=== PATIENT | female | born 1975 | race Caucasian/White ===

== ENCOUNTER 2016-07-18 15:02 | Emergency (ER) | payer OTHER ==
[2016-07-18 15:52] VITALS: BP 148/86
--- NOTE | 2016-07-18 16:48 | UC ---
Back Pain HPI - HPI Summary HPI Summary: 40 yo female with back pain x 10 days hurts to move/twist today has felt a little dizzy and weak no cp/abd pain or sob no uti symtpoms also complains of being gassy - History of Current Complaint Chief Complaint: UCBackPain Stated Complaint: BACK PAIN AND DIZZY Time Seen by Provider: 07/18/16 16:28 Hx Obtained From: Patient Hx Last Menstrual Period: NOW Onset/Duration: Gradual Onset, Lasting Days - 10 Severity Initially: Mild Severity Currently: Moderate Pain Intensity: 5 Pain Scale Used: 0-10 Numeric Character: Dull, Aching Aggravating: Movement, Lifting, Bending Alleviating: Rest Associated Signs And Symptoms: Positive: Weakness - today - Allergies/Home Medications Allergies/Adverse Reactions: Allergies Allergy/AdvReac Type Severity Reaction Status Date / Time No Known Allergies Allergy Verified 07/18/16 15:52 Home Medications: Home Medications Herbal Tea* PRN 07/18/16 [History] Lactobacillus [Probiotic] 07/18/16 [History] PMH/Surg Hx/FS Hx/Imm Hx Previously Healthy: Yes Endocrine History Of: Denies: Diabetes, Thyroid Disease Cardiovascular History Of: Denies: Cardiac Disorders, Hypertension Respiratory History Of: Denies: COPD, Asthma GI/ History Of: Denies: Ulcer Cancer History Of: Denies: Breast Cancer - Surgical History Surgical History: Yes Surgery Procedure, Year, and Place: , URETHRAL STRETCH 06/2016 - Family History Known Family History: Positive: Hypertension - Social History Alcohol Use: Occasionally Substance Use Type: None Smoking Status (MU): Never Smoked Tobacco Have You Smoked in the Last Year: No Review of Systems Constitutional: Fatigue Skin: Negative Eyes: Negative ENT: Negative Respiratory: Negative Cardiovascular: Negative Gastrointestinal: Negative Genitourinary: Negative Motor: Negative Neurovascular: Negative Musculoskeletal: Myalgia Neurological: Negative Psychological: Negative All Other Systems Reviewed And Are Negative: Yes Physical Exam Triage Information Reviewed: Yes Appearance: Well-Appearing, No Pain Distress, Well-Nourished Vital Signs: Initial Vital Signs Temp 98.5 F 07/18/16 15:48 Pulse 112 07/18/16 15:48 Resp 18 07/18/16 15:48 BP 148/86 07/18/16 15:48 Pulse Ox 100 07/18/16 15:48 Eye Exam: Normal Eyes: Positive: Conjunctiva Clear ENT: Positive: Normal ENT inspection Neck: Positive: Supple, Nontender Respiratory Exam: Normal Respiratory: Positive: Lungs clear, Normal breath sounds, No respiratory distress Cardiovascular: Positive: RRR, No Murmur Abdomen Description: Positive: Nontender, No Organomegaly, Soft. Negative: CVA Tenderness (R), CVA Tenderness (L) Musculoskeletal: Positive: ROM Intact, No Edema Neurological: Positive: Alert Psychological Exam: Normal Skin Exam: Normal Back Pain Course/Dx - Differential Dx/Diagnosis Provider Diagnoses: back pain suspect right paraspinous myofasical strain. dizziness (non specific) Discharge - Discharge Plan Condition: Stable Disposition: HOME Patient Education Materials: Back Pain (ED), Dizziness (ED) Referrals: Charisma Carrasco MD [Primary Care Provider] - 2 Days (if not better) Additional Instructions: I am unsure of the cause of your dizziness blood work and a urine culture are pending I suspect your back pain is due to muscular strain I suggest you follow up with your gi doctor about your gas issues Images Front/Back of Body, Lg (Bandera): 1 - pain here/decreased ROM
[2016-07-18 18:49] LABS: Hematocrit 46 % (35-47); Hemoglobin 15.1 g/dl (12.0-16.0); Mean Corpuscular HGB Conc 33 g/dl (31-36); Mean Corpuscular Hemoglobin 30 pg (27-31); Mean Corpuscular Volume 93 fL (80-97); Mean Platelet Volume 12 um3 (7.4-10.4); Red Blood Count 4.97 10^6/ul (4.0-5.4); Red Cell Distribution Width 13 % (10.5-15); White Blood Count 8.3 10^3/ul (3.5-10.8)
[2016-07-18 18:59] LABS: Albumin 4.8 g/dL (3.2-5.2); BUN/Creatinine Ratio 14.4 (8-20); Calcium 9.6 mg/dL (8.6-10.3); EGFR African American 89.2 (>60); EGFR Non-African American 69.3 (>60); Globulin 2.3 g/dL (2-4); Potassium 4.2 mmol/L (3.5-5.0); Total Bilirubin 0.6 mg/dL (0.2-1.0); Total Protein 7.1 g/dL (6.4-8.9)
[2016-07-20 16:50] LABS: TSH (Thyroid Stimulating Horm) 1.87 mcIU/mL (0.34-5.60)
== END 2016-07-18 17:00 | disposition home or self-care (01) ==
LOC: UCEAST 15:02
DX: M54.9 Dorsalgia, unspecified (principal); R42 Dizziness and giddiness; Z32.02 Encounter for pregnancy test, result negative
CPT/HCPCS: 36415; 80053; 81002; 81025; 84443; 85025; 87086; 99211; G0463

== ENCOUNTER 2017-07-14 11:59 | Emergency (ER) | payer OTHER ==
[2017-07-14 14:09] VITALS: BP 115/75
--- NOTE | 2017-07-14 14:19 | UC ---
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[place], did get a flu vaccine this year - History of Current Complaint Chief Complaint: UCRespiratory Stated Complaint: COUGH, ACHES Time Seen by Provider: 07/14/17 14:14 Hx Obtained From: Patient Hx Last Menstrual Period: 3 WEEKS AGO ?: No Onset/Duration: Sudden Onset, Lasting Days - 2 Severity Currently: Moderate Severity Initially: Moderate Pain Intensity: 7 Pain Scale Used: 0-10 Numeric Associated Signs & Symptoms: Positive: Fever, Myalgia, Cough Related Hx: Possible Flu/Infectious Exposure - Allergy/Home Medications Allergies/Adverse Reactions: Allergies Allergy/AdvReac Type Severity Reaction Status Date / Time No Known Allergies Allergy Verified 07/14/17 14:02 Home Medications: Home Medications Ibuprofen TAB* [Advil TAB*] 3 tab PO TID PRN 07/14/17 [History Confirmed ] PMH/Surg Hx/FS Hx/Imm Hx Previously Healthy: Yes - Surgical History Surgical History: Yes Surgery Procedure, Year, and Place: , URETHRAL STRETCH 06/2016 - Family History Known Family History: Positive: Hypertension - Social History Occupation: Employed Full-time Lives: With Family Alcohol Use: Occasionally Substance Use Type: None Smoking Status (MU): Never Smoked Tobacco Have You Smoked in the Last Year: No Review of Systems Constitutional: Fever, Chills, Fatigue Skin: Negative Eyes: Negative ENT: Sore Throat, Nasal Discharge Respiratory: Cough Cardiovascular: Negative Gastrointestinal: Negative Genitourinary: Negative Motor: Negative Neurovascular: Negative Musculoskeletal: Arthralgia, Myalgia Neurological: Headache Psychological: Negative Is Patient Immunocompromised?: No All Other Systems Reviewed And Are Negative: Yes Physical Exam Triage Information Reviewed: Yes Appearance: Well-Nourished, Ill-Appearing, Pain Distress Vital Signs: Initial Vital Signs Temp 98.2 F 07/14/17 14:03 Pulse 77 07/14/17 14:03 Resp 16 07/14/17 14:03 BP 115/75 07/14/17 14:03 Pulse Ox 100 07/14/17 14:03 Vital Signs Reviewed: Yes Eye Exam: Normal Eyes: Positive: Conjunctiva Clear ENT Exam: Normal ENT: Positive: Normal ENT inspection, Hearing grossly normal, Pharynx normal, TMs normal, Uvula midline. Negative: Nasal congestion, Nasal drainage, Tonsillar swelling, Tonsillar exudate, Trismus, Muffled voice, Hoarse voice, Dental tenderness, Sinus tenderness Dental Exam: Normal Neck exam: Normal Neck: Positive: Supple, Nontender Respiratory Exam: Normal Respiratory: Positive: Chest non-tender, Lungs clear, Normal breath sounds, No respiratory distress, No accessory muscle use Cardiovascular Exam: Normal Cardiovascular: Positive: RRR, No Murmur, Pulses Normal, Brisk Capillary Refill Musculoskeletal Exam: Normal Musculoskeletal: Positive: Strength Intact, ROM Intact, No Edema Neurological Exam: Normal Neurological: Positive: Alert, Muscle Tone Normal Psychological Exam: Normal Skin Exam: Normal Diagnostics - Laboratory Diagnostic Studies Completed/Ordered: Influenza A/B (-) Flu Course/Dx - Course Course Of Treatment: rest increase fluids, tylenol, ibuprofen follow with pcp -- off work until fever resolves plus one day - Differential Dx/Diagnosis Provider Diagnoses: Viral URI, Febrile [place]TE Discharge - Discharge Plan Condition: Stable Disposition: HOME Patient Education Materials: Viral Syndrome (ED) Forms: *Work Release Referrals: Charisma Carrasco MD [Primary Care Provider] - If Needed
== END 2017-07-14 14:40 | disposition home or self-care (01) ==
LOC: UCEAST 11:59
DX: J06.9 Acute upper respiratory infection, unspecified (principal); R50.9 Fever, unspecified
CPT/HCPCS: 87502; 99211; G0463

== ENCOUNTER 2019-07-05 09:26 | Emergency (ER) | payer OTHER ==
[2019-07-05 10:06] VITALS: BP 120/75
--- NOTE | 2019-07-05 10:48 | UC ---
Back Pain HPI - HPI Summary HPI Summary: The patient is a 43-year-old female with the onset of left sided back pain yesterday. The pain has been constant at about a 6 out of 10. The pain is not positional and does not vary with movement at all. She has a faint twinge at the end of urination, but otherwise has no urinary symptoms. She has had a mild vaginal itch for 2 weeks. About a week and a half to 2 weeks ago she had similar left-sided pain that lasted hours. She has a strong family history of kidney stones. She denies any personal history of kidney stones or kidney infection. She has no abdominal pain. She has no fever or chills. She has no nausea vomiting or diarrhea. She has had no change in bowel habits. She denies any vaginal discharge. - History of Current Complaint Chief Complaint: UCGU Stated Complaint: LOW BACK PAIN Time Seen by Provider: 07/05/19 10:09 Hx Obtained From: Patient Hx Last Menstrual Period: 06/09/2019 Onset/Duration: Gradual Onset Timing: Constant, Lasting Hours Severity Initially: Moderate Severity Currently: Moderate Pain Intensity: 6 Pain Scale Used: 0-10 Numeric Back Pain: Is Discrete @ - see image Character: Aching Aggravating Factor(s): Nothing Alleviating Factor(s): Nothing Associated Signs And Symptoms: Negative: Swelling, Redness, Bruising, Fever, Weakness, Abdominal Pain, Flank Pain, Bladder Incontinence, Bowel Incontinence, Weight Loss, Pain with Weight Bearing Full Body (No Head): 1 - pain here - Allergies/Home Medications Allergies/Adverse Reactions: Allergies Allergy/AdvReac Type Severity Reaction Status Date / Time No Known Allergies Allergy Verified 07/05/19 10:07 PMH/Surg Hx/FS Hx/Imm Hx Previously Healthy: Yes - Surgical History Surgical History: Yes Surgery Procedure, Year, and Place: , URETHRAL STRETCH 06/2016 - Family History Known Family History: Positive: Hypertension, Renal Disease - kidney stones - Social History Alcohol Use: Occasionally Substance Use Type: None Smoking Status (MU): Never Smoked Tobacco Have You Smoked in the Last Year: No Review of Systems All Other Systems Reviewed And Are Negative: Yes Constitutional: Positive: Negative Skin: Positive: Negative Eyes: Positive: Negative ENT: Positive: Negative Respiratory: Positive: Negative Cardiovascular: Positive: Negative Gastrointestinal: Positive: Negative Genitourinary: Positive: Negative Motor: Positive: Negative Neurovascular: Positive: Negative Musculoskeletal: Positive: Negative Neurological: Positive: Negative Psychological: Positive: Negative Physical Exam Triage Information Reviewed: Yes Appearance: Well-Appearing, No Pain Distress, Well-Nourished Vital Signs: Initial Vital Signs Temp 98 F 07/05/19 10:04 Pulse 86 07/05/19 10:04 Resp 17 07/05/19 10:04 BP 120/75 07/05/19 10:04 Pulse Ox 100 07/05/19 10:04 Vital Signs Reviewed: Yes Eyes: Positive: Conjunctiva Clear ENT: Positive: Hearing grossly normal. Negative: Nasal congestion, Nasal drainage, Trismus, Muffled voice, Uvula midline Dental Exam: Normal Neck: Positive: Nontender Respiratory: Positive: Lungs clear, Normal breath sounds, No respiratory distress Cardiovascular: Positive: RRR, No Murmur Abdomen Description: Positive: Nontender, No Organomegaly, Soft. Negative: CVA Tenderness (R), CVA Tenderness (L) Bowel Sounds: Positive: Present Musculoskeletal: Positive: ROM Intact, No Edema Neurological: Positive: Alert Psychological Exam: Normal Skin Exam: Normal - Additional Comments no midline spine tenderness neg SLR back- full and painless ROM normal gait Diagnostics - Laboratory Lab Results: ua no blood or leuks Back Pain Course/Dx - Course Course Of Treatment: no CT or U/s this weekend Pateint declined transfer to ER - Differential Dx/Diagnosis Provider Diagnosis: Left-sided back pain Discharge ED - Sign-Out/Discharge Documenting (check all that apply): Patient Departure All imaging exams completed and their final reports reviewed: No Studies - Discharge Plan Condition: Stable Disposition: HOME Prescriptions: Naproxen [Naproxen 500 mg tab] 500 mg PO BID PRN #20 tablet PRN Reason: Pain Patient Education Materials: Back Pain (ED) Referrals: Jose Eduardo Batista MD [Primary Care Provider] - As Soon As Possible Additional Instructions: your urine specimen was clear a culture is pending I am unsure of the cause of your pain I suggest you go to the ER for fever/increased pain/blood in urine/severe abd pain or vomiting Your symptoms need further investigation - Billing Disposition and Condition Condition: STABLE Disposition: Home
--- NOTE | 2019-07-06 15:23 | UC ---
- Progress Note Progress Note: 07/06/2019 Genital Swabs, Negative for Gardnerella, Jen and Trichomonas. No change Yu Dennison PA-C Course/Dx - Diagnoses Provider Diagnoses: Left-sided back pain Discharge ED - Sign-Out/Discharge Documenting (check all that apply): Post-Discharge Follow Up All imaging exams completed and their final reports reviewed: No Studies - Discharge Plan Condition: Stable Disposition: HOME Prescriptions: Naproxen [Naproxen 500 mg tab] 500 mg PO BID PRN #20 tablet PRN Reason: Pain Patient Education Materials: Back Pain (ED) Referrals: Jose Eduardo Batista MD [Primary Care Provider] - As Soon As Possible Additional Instructions: your urine specimen was clear a culture is pending I am unsure of the cause of your pain I suggest you go to the ER for fever/increased pain/blood in urine/severe abd pain or vomiting Your symptoms need further investigation - Billing Disposition and Condition Condition: STABLE Disposition: Home
== END 2019-07-05 11:00 | disposition home or self-care (01) ==
LOC: UCEAST 09:26
DX: M54.89 Other dorsalgia (principal); L29.3 Anogenital pruritus, unspecified
CPT/HCPCS: 81003; 87086; 87480; 87510; 87660; 99212; G0463